=== PATIENT | female | born 1955 | race Caucasian/White ===

== ENCOUNTER 2016-07-06 11:50 | Inpatient (IN) | payer MEDICARE ==
[2016-07-06] VITALS (9 sets, daily range): BP systolic 87–161; BP diastolic 46–80
[~2016-07-06] VITALS: Ht 162.6 cm; Wt 125.7 kg
[~2016-07-06 11:50] MED LIST: ASPIRIN81 M1 PO; BENZAMYCIN 5%-31 GEL TP; DULERA1 AR1 INH; FLEXERIL10 MG PO; FLUTICASON0.05 MG/A1 NS; GLUCOPHAGE500 MG PO; HUMALOG100 UNITS/ SUBQ; HYDROCODONE/HO473 ML PO; LANTUS INS100 UNITS/ SUBQ; LASIX20 MG PO; LIPITOR80 MG PO; MIRAPEX0.5 MG PO; NAPROSYN500 MG PO; NOVOLIN R100 UNITS/ SUBQ; PREDNISONE10 MG PO; PRILOSEC40 MG PO; PROAIR HFA0.09 MG/Ac INH; PROVENTIL2.5 MG/3 M NEB; ROBITUSSIN/DEXT10 ML PO; SPIRIVA MD18 MCG/CAP INH; XANAX0.5 MG PO; ZESTRIL10 MG PO; ZITHROMAX250 MG PO
--- NOTE | 2016-07-06 11:55 | NUR ---
Patient BIBA ACLS accompanied by Pavel GUAMAN, transferred to bed 4. RN evaluating patient at bedside.
--- NOTE | 2016-07-06 12:00 | NUR ---
60F BIB[place] [facility] [place] SHORTNESS OF BREATH X 30 MINUTES AGO PRIOR TO ARRIVAL; HX: COPD, CHF, ASTHMA; PER [facility], PT BASELINE O2 SAT 86-89% ON 3L; PER [facility], PT O2 SAT DROPPED TO 79% ON 3L AT FACILITY; PT DENIES SOB OR CHEST PAIN AT THIS TIME; RR LABORED, COARSE RHONCHI TO RT UPPER LOBE HEARD ON EXPIRATION; PT DENIES COUGH AT THIS TIME; TACHYCARDIA NOTED ON MONITOR; BL +4 PITTING EDEMA TO LOWER EXTREMITIES W/ PURPLE DISCORATION TO BL TOES NOTED AT THIS TIME; [facility] STATES PT HAS BL CELLULITIS TO LOWER EXTREMITIES; PT C/O ACHING PAIN TO BL LOWER EXTREMITIES, NON-RADIATING, 10 X 3 WEEKS; PT A&OX4, PERRLA, DENIES N/V/D AT THIS TIME; PT STATES BED BOUND; PT PLACED ON MONITOR, RESTING IN BED W/ HOB ELEVATED AND IN LOWEST POSITION; POSITIONED FOR COMFORT; ER MD MADE AWARE OF STATUS. WILL CONTINUE TO MONITOR.
[2016-07-06] MEDS ORDERED: IPRATROPIUM 0.02% 0.5 MG/2.5 ML NEBU INH ONE (12:05)
[2016-07-06] MEDS ORDERED: ALBUTEROL 0.083% 2.5 MG/3 ML NEBU INH ONE (12:05)
--- NOTE | 2016-07-06 12:16 | NUR ---
RT AT BEDSIDE.
--- NOTE | 2016-07-06 12:16 | NUR ---
ER MD DR. FREGOSO EVALUATING PT AT BEDSIDE.
--- NOTE | 2016-07-06 13:18 | NUR ---
XRAY AT BEDSIDE.
[2016-07-06] MEDS ORDERED: NACL 0.9% 1,000 ML IV ONE (13:20)
[2016-07-06] MEDS ORDERED: cefTRIAXone 2,000 MG in DEXTROSE 5% 100 ML IV ONE (13:20)
[2016-07-06] MEDS ORDERED: cefTRIAXone 2,000 MG VIAL ONE (13:31)
--- NOTE | 2016-07-06 14:15 | NUR ---
Patient appears to be resting comfortably in bed. DENIES ANY ACUTE DISTRESS AT THIS TIME; DENIES SOB AT THIS TIME; WILL CONTINUE TO MONITOR.
[2016-07-06] MEDS ORDERED: VANCOMYCIN HCL 750 MG in DEXTROSE 5% 250 ML IV SCH (14:25)
[2016-07-06] MEDS ORDERED: VANCOMYCIN 1,000 MG VIAL ONE (14:59)
--- NOTE | 2016-07-06 15:17 | NUR ---
REPORT GIVEN TO FERMIN.
[2016-07-06] MEDS ORDERED: HYDROcodone/APAP 10/325 MG 1 TAB TAB PO PRN (15:25)
[2016-07-06] MEDS ORDERED: ONDANSETRON 4 MG TAB PO PRN (15:25)
[2016-07-06] MEDS ORDERED: INSULIN LISPRO SLIDING SCALE 100 UNITS/ML VIAL SUBQ PRN (15:25)
--- NOTE | 2016-07-06 15:31 | NUR ---
Patient will be admitted to care of . Admited to ICU. Will go to room ICU3. Belongings list completed. Report to YOVANA CHRISTENSEN.
--- NOTE | 2016-07-06 15:40 | NUR ---
PT ADMITTED FROM ER, AWAKE ALERT AND ORIENTED X4. NO SIGNS OF ACUTE DISTRESS. WITH O2 VIA VENTURI MASK AT 40% FIO2. KEPT HOB ELEVATED. SKIN IS WARM AND DRY. NOTED BILATERAL UPPER EXTREMITIES DISCOLORATION AND LEFT LEG DISCOLORATION KEPT ELEVATED ON PILLOWS. NO SIGNS OF ANY BOWEL/BLADDER DISCOMFORT. DENIES OF ANY PAIN OR DISCOMFORT. ALL NEEDS ATTENDED, SAFETY PRECAUTIONS MAINTAINED. CALL LIGHT WITHIN REACH.
[2016-07-06] MEDS ORDERED: FUROSEMIDE 40 MG/4 ML VIAL IVP SCH (16:00)
[2016-07-06] MEDS: BLOOD GLUCOSE MONITORING 1 DEV DEV FS SCH ×2 (16:45→20:47)
[2016-07-06] MEDS: metFORMIN 500 MG TAB PO SCH (16:48)
--- NOTE | 2016-07-06 16:48 | NUR ---
CALLED DR. VIZCARRA FOR MRSA, VTE - 18 SCORE ORDERS. NO RESPONSE AT THIS TIME. TO FOLLOW UP. Addendum: 07/06/16 at 1910 by Jerson Pope RN CALLED DR. VIZCARRA FOR MRSA, VTE - 13 SCORE ORDERS. NO RESPONSE AT THIS TIME. TO FOLLOW UP.
[2016-07-06] MEDS ORDERED: ACETAMINOPHEN 325 MG SUPP RC PRN (16:55)
[2016-07-06] MEDS: NACL 0.9% 1,000 ML IV SCH ×2 (17:18→20:42)
[2016-07-06] MEDS: PIPER/TAZO 3.375GM/D5W PREMIX 50 ML IV SCH ×2 (17:19→23:21)
--- NOTE | 2016-07-06 17:57 | NUR ---
DR VIZCARRA ON UNIT. GIVEN REPORT. MADE AWARE OF VTE SCORE 18. MRSA ORDERS OBTAINED. CONTINUE TO MONITOR. Addendum: 07/06/16 at 1910 by Jerson Pope RN DR VIZCARRA ON UNIT. GIVEN REPORT. MADE AWARE OF VTE SCORE 13. MRSA ORDERS OBTAINED. CONTINUE TO MONITOR.
[2016-07-06] MEDS ORDERED: ALBUTEROL SULFATE/IPRATROPIU 3 ML SOL IH SCH (18:00)
--- NOTE | 2016-07-06 18:10 | NUR ---
NOTED O2 SAT AT 81% RT. AND DR. VIZCARRA MADE AWARE. PT. AWAKE ALERT AND DENIES SYMPTOMS OF ACUTE DISTRESS. KEPT HOB ELEVATED. CONTINUE TO MONITOR.
--- NOTE | 2016-07-06 18:15 | NUR ---
PT PLACED ON NON REBREATHER MASK. NOTED O2 SAT AT 100%. PT PLACED ON A COMFORTABLE POSITION. PT DENIES SOB PAIN OR ANY SIGNS OF ACUTE DISTRESS CONTINUE TO MONITOR.
--- NOTE | 2016-07-06 18:30 | NUR ---
DR SHARMA ON FLOOR. REPORT GIVEN ON PT'S CURRENT STATUS. CONTINUE TO MONITOR.
--- NOTE | 2016-07-06 18:45 | NUR ---
PT ALERT AND RESPONSIVE, NO SIGNS OF ACUTE DISTRESS. TO ENDORSE TO ONCOMING BASKET WEAVER NURSE FOR CONTINUITY OF CARE.
[2016-07-06] MEDS ORDERED: ALBUTEROL 0.083% 2.5 MG/3 ML NEBU INH SCH (19:00)
[2016-07-06] MEDS ORDERED: WARFARIN 5 MG TAB PO ONE (19:45)
--- NOTE | 2016-07-06 19:45 | NUR ---
RECEIVED US VENOUS DOPPLER BLE RESULTS AT 193, PAGED DR. HERRMANN AT 0, CALLED BACK AT 1944, INFORMED RESULT: DEMONSTRATION OF DEEP VEIN THROMBOSIS WITH OCCLUSION OF THE DEEP VENOUS SYSTEM BILATERALLY. DR. HERRMANN ORDERED TO GIVE COUMADIN 5 MG PO NOW.
[2016-07-06] MEDS: ALBUTEROL SULFATE/IPRATROPIU 3 ML SOL IH SCH (19:51)
--- NOTE | 2016-07-06 19:51 | NUR ---
PT PLACED ON BIPAP AFTER ABG RESULTS GIVEN TO DR SHARMA. PT AWAKE, WITH FULL LARGE SIZE FACE MASK. PT BREATH SOUNDS DIMINISHED BILATERALLY, HHN TX GIVEN VIA INLINE. PT HAS NO COUGH AT THIS TIME. NO ADVERSE EFFECTS NOTED. BIPAP ALARMS ON AND AUDIBLE. BIPAP PLUGGED INTO RED ELECTRICAL OUTLET. AMBU BAG AT [facility].
--- NOTE | 2016-07-06 20:00 | NUR ---
PATIENT ASLEEP, EASILY AROUSED, ON BIPAP, NO RESPIRATORY DISTRESS, IVF NS AT 150 ML/HR, IV SITE ON LEFT HAND G#24 PATENT AND INTACT, ST ON THE MONITOR. PATIENT WITH BRUISING ON BUE, LEFT LEG RED, WARM TO TOUCH, 4+ PITTING EDEMA, LEFT FOOT WITH 4+ PITTING EDEMA TOO. RIGHT LEG/FOOT WITH 3+ PITTING EDEMA, DENIES PAIN. Addendum: 07/07/16 at 0141 by Sabine Ta RN ADDITIONAL SKIN ASSESSMENT: PATIENT WIT RASH ON ABDOMINAL FOLD AND ALSO ON HER PERIAREA.
[2016-07-06] MEDS: methylPREDNISolone SS 40 MG/ML VIAL IVP SCH (20:40)
[2016-07-06] MEDS: ATORVASTATIN 20 MG TAB PO SCH (20:42)
[2016-07-06] MEDS: DOCUSATE SODIUM 250 MG GELCAP PO SCH (20:42)
[2016-07-06] MEDS: PRAMIPEXOLE 0.5 MG TAB PO SCH (20:47)
[2016-07-06] MEDS ORDERED: INSULIN DETEMIR 100 UNITS/ML 10 ML VIAL SUBQ SCH (21:00)
[2016-07-06] MEDS ORDERED: ALPRAZolam 0.5 MG TAB PO PRN (21:00)
[2016-07-06] MEDS ORDERED: ALPRAZolam 0.5 MG TAB PO SCH (21:00)
--- NOTE | 2016-07-06 21:30 | NUR ---
DR. HERRMANN HERE IN THE UNIT AT THIS TIME TO SEE HER PATIENTS, INFORMED THAT PATIENT HAS ONLY ONE IV SITE ON LEFT HAND G#24, TRIED 3X ALREADY TO PLACED NEW LINE BUT UNSUCCESSFUL.
--- NOTE | 2016-07-06 21:40 | NUR ---
BIPAP CHECKED. PT RESTING QUIETLY, FIO2 DECREASED TO 40%, SATURATION REMAINS AT 98-100%. NO DISTRESS/SOB NOTED AT THIS TIME. NO ADVERSE EFFECTS NOTED.
--- NOTE | 2016-07-06 23:35 | NUR ---
BIPAP CHECKED. PT ASLEEP, NO DISTRESS/SOB NOTED AT THIS TIME. WILL CONTINUE TO MONITOR.
[2016-07-07] VITALS (17 sets, daily range): BP systolic 93–138; BP diastolic 51–94
--- NOTE | 2016-07-07 00:10 | NUR ---
SLEEP, EASILY AROUSED, PATIENT PREFERS TO BE ON HER LEFT SIDE, ON BIPAP, NO RESPIRATORY DISTRESS.
[2016-07-07] MEDS: HYDRAGUARD CREAM TP SCH ×2 (01:00→11:17)
[2016-07-07] MEDS: ALBUTEROL SULFATE/IPRATROPIU 3 ML SOL IH SCH ×4 (01:30→19:11)
--- NOTE | 2016-07-07 01:30 | NUR ---
BIPAP CHECKED. PT ASLEEP, BREATH SOUNDS DIMINISHED BILATERALLY. HHN TX GIVEN VIA INLINE. NO ADVERSE EFFECTS NOTED.
--- NOTE | 2016-07-07 01:41 | NUR ---
PATIENT JUST HAD A BOWEL MOVEMENT, LARGE BROWN FORMED STOOL. PROVIDED BED BATH AND COMPLETE LINEN CHANGED.LEFT LEG REDNESS NOTED SUBSIDING, BOTH LEGS ELEVATED WITH PILLOW, PATIENT ABLE TO TURN SELF WITH MINIMAL ASSIST, NO RESPIRATORY DISTRESS, DENIES PAIN.
--- NOTE | 2016-07-07 03:33 | NUR ---
BIPAP CHECKED. PT ASLEEP, NO DISTRESS/SOB NOTED AT THIS TIME. PT BELL WELL.
[2016-07-07] MEDS: NACL 0.9% 1,000 ML IV SCH ×3 (03:36→16:20)
--- NOTE | 2016-07-07 03:56 | NUR ---
SLEEPING COMFORTABLY, NO RESPIRATORY DISTRESS.
[2016-07-07] MEDS: methylPREDNISolone SS 40 MG/ML VIAL IVP SCH ×3 (05:09→20:58)
[2016-07-07] MEDS: PIPER/TAZO 3.375GM/D5W PREMIX 50 ML IV SCH ×3 (05:10→17:02)
--- NOTE | 2016-07-07 05:20 | NUR ---
BIPAP CHECKED. PT RESTING QUIETLY. NO DISTRESS/SOB NOTED AT THIS TIME.
--- NOTE | 2016-07-07 06:28 | NUR ---
AM CARE PROVIDED, NO RESPIRATORY DISTRESS, BLE ELEVATED WITH PILLOWS. ACCUCHECK DONE , BS 78. DENIES PAIN.
--- NOTE | 2016-07-07 07:00 | NUR ---
PT IS ASLEEP, EASILY AROUSABLE. NO SIGNS OF ACUTE DISTRESS. WITH BIPAP 50%. KEPT HOB ELEVATED AT LEAST 30 DEGREES. SKIN IS WARM AND DRY, OFFLOAD TO PRESSURE AREAS. BLE ELEVATED ON PILLOWS. NO C/O ANY BOWEL OR BLADDER DISCOMFORT. DENIES OF ANY PAIN OR DISCOMFORT. ALL NEEDS ATTENDED, SAFETY PRECAUTIONS MAINTAINED. CALL LIGHT WITHIN REACH.
[2016-07-07] MEDS: BLOOD GLUCOSE MONITORING 1 DEV DEV FS SCH ×4 (07:22→20:54)
[2016-07-07] MEDS ORDERED: CLINICAL MONITORING MC PRN (08:10)
--- NOTE | 2016-07-07 08:10 | NUR ---
RECEIVED PT STABLE ON BIPAP, TAKEN OFF BIPAP FOR HHN TX, TOLERATED WELL, DID NOT NEED TO GO BACK ON TO BIPAP AT THIS TIME, PLACED ON 4L NC, NO RESP DISTRESS OR SOB NOTED, FERMIN RN NOTIFIED, WILL CONTINUE TO MONITOR.
[2016-07-07] MEDS: DOCUSATE SODIUM 250 MG GELCAP PO SCH ×2 (08:17→20:58)
[2016-07-07] MEDS: metFORMIN 500 MG TAB PO SCH ×2 (08:17→16:55)
[2016-07-07] MEDS: PRAMIPEXOLE 0.5 MG TAB PO SCH ×2 (08:18→20:59)
[2016-07-07] MEDS: MORPHINE SULFATE 2 MG/ML SYR IVP PRN ×4 (08:37→18:06)
--- NOTE | 2016-07-07 08:53 | NUR ---
NEW ORDERS RECEIVED FROM BRYON LEVIN AND CONSULT WITH DR. PAT. NOTED AND CARRIED OUT.
[2016-07-07] MEDS ORDERED: FUROSEMIDE 40 MG/4 ML VIAL IVP SCH (09:00)
[2016-07-07] MEDS ORDERED: LACTOBACILLUS RHAMNOSUS GG 1 EACH CAP PO SCH (09:00)
[2016-07-07] MEDS ORDERED: LISINOPRIL 10 MG TAB PO SCH (09:00)
[2016-07-07] MEDS ORDERED: MAG SULF 2000 MG/WATER PREMIX 50 ML IV SCH (09:00)
[2016-07-07] MEDS ORDERED: ASPIRIN 81 MG TAB.CHEW PO SCH (09:00)
[2016-07-07] MEDS ORDERED: PANTOPRAZOLE 40 MG TABEC PO SCH (09:00)
--- NOTE | 2016-07-07 09:30 | NUR ---
WAS NOTIFIED BY ASSIGNED RT, PT PLACED ON NASAL CANULA AT 4L/MIN. TOLERATING WELL. O2 SAT AT 94% CONTINUE TO MONITOR.
--- NOTE | 2016-07-07 10:27 | NUR ---
URINE COLLECTED AND SENT TO LAB.
--- NOTE | 2016-07-07 10:50 | NUR ---
PER DR. VIZCARRA, OK TO TRANSFER PT TO [facility]. CALLED [facility] [phone] RE: TRANSFER OF PT TO [facility]. LABS, XR RESULTS, H&P, LIST OF MEDS. FAXED TO [phone]. ANKUR WILL CALL BACK.
--- NOTE | 2016-07-07 11:11 | NUR ---
NEW ORDERS RECEIVED FROM DR. VIZCARRA. INSERT FC AND CHANGE NS IVF RATE TO 50ML/HR. NOTED AND CARRIED OUT.
--- NOTE | 2016-07-07 11:25 | NUR ---
PT TOLERATED FARIAS CATHETER INSERTION, OBTAINED YELLOW CLEAR URINE AT 275ML. CONTINUE TO MONITOR.
--- NOTE | 2016-07-07 11:38 | NUR ---
WAS SEEN BY HAIDER CASTANEDA FOR CONSULT WITH DR. PAT. CONTINUE TO MONITOR.
[2016-07-07] MEDS: ALBUTEROL SULFATE/IPRATROPIU 3 ML SOL IH PRN ×2 (11:40→21:54)
--- NOTE | 2016-07-07 13:45 | NUR ---
PT PLACED BACK ON BIPAP 40% O2 SAT AT 97%. CONTINUE TO MONITOR.
--- NOTE | 2016-07-07 13:52 | NUR ---
PT DESATURATING TO 84% AND BEGINNING TO FEEL SHORT OF BREATH, ASKED TO BE PLACED BACK ONTO BIPAP. PLACE ON BIPAP 10/5, RR 12, FIO2 40%, HHN TX GIVEN, TOLERATING WELL, WILL CONTINUE TO MONITOR.
--- NOTE | 2016-07-07 14:47 | NUR ---
NEW AM LAB ORDERS RECEIVED FROM DR. VIZCARRA. NOTED AND CARRIED OUT.
--- NOTE | 2016-07-07 15:56 | NUR ---
CALLED [facility] T[facility]. # [phone] TO FOLLOW UP ON PT TRANSFER TO [place]. NO RESPONSE.
--- NOTE | 2016-07-07 16:45 | NUR ---
WAS SEEN BY DR. HAIDER HOLLINS. PLACED FERMIN WRAP ON BILATERAL LEGS. PT ABLE TO TOLERATED PROCEDURE. BOTH LEGS ELEVATED ON PILLOWS. CONTINUE TO MONITOR.
[2016-07-07] MEDS ORDERED: WARFARIN 5 MG TAB PO SCH (17:00)
--- NOTE | 2016-07-07 17:10 | NUR ---
REPORT GIVEN TO ANKUR FROM [facility]. DR. CARMITA CARLOS.
--- NOTE | 2016-07-07 17:15 | NUR ---
PT AWARE OF POSSIBLE TRANSFER TO [facility].
--- NOTE | 2016-07-07 17:29 | NUR ---
WAS MADE AWARE BY CHARGE NURSE, PT TO BE ARRANGED FOR TRANSFER TO [facility] TODAY. CM FROM [facility] CURRENTLY REVIEWING PT'S CASE, WILL CALL AND NOTIFY UNIT IF BED IS GOING TO BE AVAILABLE EITHER IN [facility] OR [place]. MIRANDA GONZALEZ, AWARE
--- NOTE | 2016-07-07 17:30 | NUR ---
PT'S MIRANDA NOTIFIED OF POSSIBLE TRANSFER OF PT TO [facility].
--- NOTE | 2016-07-07 17:59 | NUR ---
PT BEGAN TO FEEL SOME RESP DISTRESS, REQUESTED TO BE PLACED BACK ONTO BIPAP, PLACED BACK ONTO BIPAP, TOLERATING WELL, WILL ENDORSE TO PUMPER GAGER APPRENTICE
--- NOTE | 2016-07-07 18:00 | NUR ---
ANKUR ([facility]) NOTIFIED OF ABG RESULTS.
--- NOTE | 2016-07-07 19:03 | NUR ---
PT ALERT AND RESPONSIVE, NO SIGNS OF ACUTE DISTRESS. ENDORSED TO ONCOMING CLINICAL DIRECTOR NURSE FOR CONTINUITY OF CARE.
[2016-07-07] MEDS ORDERED: [UNRECOGNIZED DRUG - OTHER] IV (19:35)
[2016-07-07] MEDS ORDERED: BD LACTINEX1.4 MG PO (19:35)
--- NOTE | 2016-07-07 20:00 | NUR ---
PATIENT [id number], ST ON THE MONITOR, ON O2 AT 4LNC, HOB ELEVATED, IVF NS AT 50 ML/HR, IV SITE LEFT HAND G#24 PATENT AND INTACT, HAS FARIAS CATHETER DRAINING CLOUDY YELLOW URINE. BOTH LEGS WRAPPED ON FERMIN BANDAGE. PATIENT COMPLAINING OF PAIN (CHEST AND LEGS), INFORMED THAT PAIN MEDS NOT DUE AT THIS TIME, PATIENT ASKED MD TO BE CALLED TO ASK FOR ANOTHER PAIN MED. DR. HERRMANN INFORMED, WILL PUT ORDER FOR TORADOL, PATIENT INFORMED.
[2016-07-07] MEDS ORDERED: KETOROLAC 30 MG/ML VIAL IM PRN (20:05)
--- NOTE | 2016-07-07 20:52 | NUR ---
ANKUR/JULIÁN FROM [facility] CALLED TO INFORMED OF BED AVAILABILITY AND TO CALL FOR REPORT.
[2016-07-07] MEDS: ATORVASTATIN 20 MG TAB PO SCH (20:58)
[2016-07-07] MEDS ORDERED: INSULIN DETEMIR 100 UNITS/ML 10 ML VIAL SUBQ SCH (21:00)
--- NOTE | 2016-07-07 21:05 | NUR ---
CALL PLACED TO [facility] AT [phone], REPORT GIVEN.
--- NOTE | 2016-07-07 21:15 | NUR ---
PLACED A CALL TO PATIENT'S MIRANDA GONZALEZ THAT PATIENT WILL BE TRANSFERRED TO [facility], AMBULANCE ON THEIR WAY TO TILLER WORKER THE PATIENT HERE AT [facility].
--- NOTE | 2016-07-07 22:40 | NUR ---
PATIENT DISCHARGED FROM ICU AT 2239, NO BELONGINGS, TRANSPORTED BY [facility] GOING TO [facility] ROOM 427, NO RESPIRATORY DISTRESS, DENIES PAIN. MIRANDA GONZALEZ NOTIFIED OF THE TRANSFER.
[2016-07-18] MEDS ORDERED: AMERINET CHOICE40 MG IVP (12:31)
[2016-07-18] MEDS ORDERED: ASPIRIN ADULT L81 M1 PO (12:31)
[2016-07-18] MEDS ORDERED: DEXTROSE 50 ML50 M3 IVP (12:31)
[2016-07-18] MEDS ORDERED: HEPARIN SOD5000 U/M1 IV (12:31)
[2016-07-18] MEDS ORDERED: ACETAMINOPHEN325 M2 PO (12:31)
[2016-07-18] MEDS ORDERED: HUMALOG SL100 UNITS/ SUBQ (12:31)
[2016-07-18] MEDS ORDERED: APAP/HYDROCODON1 T30 PO (12:31)
[2016-07-18] MEDS ORDERED: FUROSEMIDE20 M1 PO (12:31)
[2016-07-18] MEDS ORDERED: COLACE100 M1 PO (12:31)
[2016-07-18] MEDS ORDERED: ALPRAZOLAM0.5 M1 PO (12:31)
[2016-07-18] MEDS ORDERED: PULMICORT0.5 MG/2 M INH (12:31)
[2016-07-18] MEDS ORDERED: KAYEXALATE15 GM/60 M PR (12:31)
[2016-07-18] MEDS ORDERED: ATORVASTATIN CA20 MG PO (12:31)
[2016-07-18] MEDS ORDERED: [UNRECOGNIZED DRUG - OTHER] IV (12:31)
[2016-07-18] MEDS ORDERED: IPRATROPIUM BROM3 M1 IH (12:31)
[2016-07-18] MEDS ORDERED: XANAX0.5 M1 PO (15:38)
== END 2016-07-07 22:39 | disposition short-term general hospital (02) | DRG 871 ==
LOC: MED 11:50 → MIC 15:17
PROVIDERS: ADMIT Student in an Organized Health Care Education/Training Program; ATTEND Student in an Organized Health Care Education/Training Program
PROC: 5A09357 Assistance with Respiratory Ventilation, Less than 24 Consecutive Hours, Continuous Positive Airway Pressure (ICD-10-PCS; principal; 2016-07-06)
DX: A41.9 Sepsis, unspecified organism (principal); J96.21 Acute and chronic respiratory failure with hypoxia; J96.22 Acute and chronic respiratory failure with hypercapnia; J69.0 Pneumonitis due to inhalation of food and vomit; N17.0 Acute kidney failure with tubular necrosis; J44.1 Chronic obstructive pulmonary disease with (acute) exacerbation; E87.1 Hypo-osmolality and hyponatremia; E44.0 Moderate protein-calorie malnutrition; I82.403 Acute embolism and thrombosis of unspecified deep veins of lower extremity, bilateral; Z68.42 Body mass index [BMI] 45.0-49.9, adult; I50.9 Heart failure, unspecified; I11.0 Hypertensive heart disease with heart failure; K21.9 Gastro-esophageal reflux disease without esophagitis; E78.5 Hyperlipidemia, unspecified; E66.01 Morbid (severe) obesity due to excess calories; F17.200 Nicotine dependence, unspecified, uncomplicated; G47.33 Obstructive sleep apnea (adult) (pediatric); E11.65 Type 2 diabetes mellitus with hyperglycemia; D64.9 Anemia, unspecified; E87.5 Hyperkalemia; L81.9 Disorder of pigmentation, unspecified; E83.42 Hypomagnesemia; E11.51 Type 2 diabetes mellitus with diabetic peripheral angiopathy without gangrene; Z82.49 Family history of ischemic heart disease and other diseases of the circulatory system; Z79.82 Long term (current) use of aspirin; Z79.899 Other long term (current) drug therapy; Z86.711 Personal history of pulmonary embolism; Z56.0 Unemployment, unspecified; Z83.3 Family history of diabetes mellitus; Z79.4 Long term (current) use of insulin

== ENCOUNTER 2016-07-17 14:56 | Inpatient (IN) | payer MEDICARE ==
[~2016-07-17] VITALS: Ht 172.7 cm; Wt 121.1 kg
[2016-07-17] VITALS (27 sets, daily range): BP systolic 78–142; BP diastolic 35–97
--- NOTE | 2016-07-17 14:00 | NUR ---
PT WAS INTUBATED IN ER WITH 7.5 ETT AT 23 AT THE LIP WITH HELP OF RT COTTON. SETTINGS ARE AC 550,14,5,100%. WILL FOLLOW WITH ORDERS.
--- NOTE | 2016-07-17 14:50 | NUR ---
PT CAME IN THRU ER FOR SOB AND RESP DISTRESS AND WAS ON CPAP. PT WAS PUT ON BIPAP SETTINGS 12/05,12,100% SATTING 100%. Addendum: 07/17/16 at 1539 by Paco Whitfield RT RT [facility]ER HELPING AT BEDSIDE.
[~2016-07-17 14:56] MED LIST changes: +ALBU-136 INH; +ALPR0.5T2 PO; +ASPI81CT89 PO; -ASPIRIN81 M1 PO; -BENZAMYCIN 5%-31 GEL TP; -DULERA1 AR1 INH; -FLEXERIL10 MG PO; -FLUTICASON0.05 MG/A1 NS; +FORM1 INH; +FURO-572 PO; -GLUCOPHAGE500 MG PO; -HUMALOG100 UNITS/ SUBQ; -HYDROCODONE/HO473 ML PO; +LACT1.4C PO; -LANTUS INS100 UNITS/ SUBQ; +LANTUS SUBQ; -LASIX20 MG PO; +LIP80 PO; -LIPITOR80 MG PO; +LISI10TA11 PO; +METF500T PO; -MIRAPEX0.5 MG PO; -NAPROSYN500 MG PO; -NOVOLIN R100 UNITS/ SUBQ; +OMEP40EC1 PO; +PIPE1PDS26 IV; +PRAM0.5T4 PO; +PRED10TA5 PO; -PREDNISONE10 MG PO; -PRILOSEC40 MG PO; -PROAIR HFA0.09 MG/Ac INH; +PRON NEB; -PROVENTIL2.5 MG/3 M NEB; -ROBITUSSIN/DEXT10 ML PO; +SPIMDI INH; -SPIRIVA MD18 MCG/CAP INH; -XANAX0.5 MG PO; -ZESTRIL10 MG PO; -ZITHROMAX250 MG PO; +[UNRECOGNIZED DRUG - CODE] NS
--- NOTE | 2016-07-17 14:56 | NUR ---
PT BIBA TO BED 3 AT THIS TIME.
--- NOTE | 2016-07-17 15:00 | NUR ---
60F BIBA FROM [facility] C/O SHORTNESS OF BREATH S/P PHYSICAL THERAPY X 1400 TODAY; PT BIBA ON CPAP; A&OX4, PERRLA ON ARRIVAL; PT NOTED WITH BL RHONCHI, WHEEZES, AND DIMINISHED BREATH SOUNDS THROUGHOUT W/ LABORED BREATHING & TACHYPNEA ON THE MONITOR; PT DENIES ANY PAIN, N/V/D AT THIS TIME; PT NOTED W/ BL UPPER/LOWER EXTREMITY EDEMA; PURPRLE DISCOLRATION TO BL UPPER EXTREMITIES; REDNESS/OPEN SKIN TO BUTTOCKS; OPEN SKIN TO LEFT HAND. PT PLACED ON MONITOR, RESTING IN BED W/ HOB ELEVATED AND IN LOWEST POSITION; POSITIONED FOR COMFORT; ER MD MADE AWARE OF STATUS. WILL CONTINUE TO MONITOR.
--- NOTE | 2016-07-17 15:00 | NUR ---
ET TUBE 7.5 AT 23 CM.
--- NOTE | 2016-07-17 15:14 | NUR ---
Sushila lorenzo in [facility] - 07/17/16 at 1553 by MARTIN PT BIBA TO BED 3
[2016-07-17] MEDS ORDERED: MIDAZOLAM 2 MG/2 ML VIAL ONE (15:22)
[2016-07-17] MEDS ORDERED: fentaNYL 0.05 MG/ML VIAL ONE (15:23)
[2016-07-17] MEDS ORDERED: LEVOFLOXACIN 750 MG/D5W PREMIX 150 ML IV ONE (16:05)
[2016-07-17] MEDS ORDERED: NACL 0.9% 2,000 ML IV ONE (16:05)
[2016-07-17] MEDS ORDERED: NOREPINEPHRINE 4 MG in DEXTROSE 5% 250 ML IV ONE (16:05)
[2016-07-17] MEDS ORDERED: MIDAZOLAM 2 MG/2 ML VIAL IVP ONE (16:15)
[2016-07-17] MEDS ORDERED: fentaNYL 0.05 MG/ML VIAL IVP ONE (16:15)
--- NOTE | 2016-07-17 16:20 | NUR ---
AT 1500 HOURS DECISION WAS MADE TO INTUBATE PATIENT, RAPID SEQUENCE TRAY AT BEDISDE 200 MG OF ETOMIDATE GIVEN IVP AND THEN 50 ROCUCURIUM IVP. PATIENT INTUBATED BY MD SILVEIRA.
[2016-07-17 16:23] LABS: HEMATOCRIT 28.6 % (36-48); HEMOGLOBIN 8.8 g/dL (12.0-16.0); MEAN CORPUSCULAR HEMOGLOBIN 26 pg (27-31); MEAN CORPUSCULAR HGB CONC 31 g/dL (33-37); MEAN CORPUSCULAR VOLUME 84 fL (80-94); PLATELET COUNT (AUTO) 148 K/uL (140-450); RED BLOOD CELL COUNT(AUTO) 3.42 MIL/uL (4.20-5.40); RED CELL DISTRIBUTION WIDTH 16.9 % (11.6-13.7); WHITE BLOOD COUNT (AUTO) 24.7 K/uL (4.8-10.8)
[2016-07-17 16:39] LABS: INR 1.8 (0.8-1.2); PARTIAL THROMBOPLASTIN TIME 28.5 secs (22-35.6); PROTHROMBIN TIME 16.9 secs (10.8-13.4)
--- NOTE | 2016-07-17 16:40 | NUR ---
ETT AT 25 AT LIP
[2016-07-17 16:46] LABS: ALBUMIN 2.2 g/dL (3.4-5.0); CALCIUM 9.8 mg/dL (8.5-10.1); CREATININE 0.7 mg/dL (0.6-1.3); TOTAL BILIRUBIN 0.5 mg/dL (0.0-1.0); TOTAL PROTEIN, SERUM 5.8 g/dL (6.4-8.2)
[2016-07-17] MEDS ORDERED: NOREPINEPHRINE 4 MG/4 ML VIAL IV ONE (16:46)
--- NOTE | 2016-07-17 17:01 | NUR ---
ABG WAS DRAWN BUT WAS VENOUS. RT COTTON TRIED AGAIN WITH NO SUCCESS. DR NORWOOD AWARE. SPUTUM SAMPLE COLLECTED AND WAS SENT TO THE LAB.
[2016-07-17] MEDS ORDERED: fentaNYL 1 MG in NACL 0.9% 80 ML IV PRN (17:10)
[2016-07-17] MEDS ORDERED: VECURONIUM 10 MG VIAL IVP ONE (17:10)
[2016-07-17] MEDS ORDERED: MIDAZOLAM MDV 50 MG in NACL 0.9% 40 ML IV PRN (17:10)
[2016-07-17 17:16] LABS: BAND % (MANUAL) 6 % (0-8); EOSINOPHILS % (MANUAL) 2 % (0-4); HYPOCHROMASIA 1+; LYMPHOCYTES % (MANUAL) 3 % (20-46); MONOCYTES % (MANUAL) 3 % (5-12); NEUTROPHILS % (MANUAL) 84 (43-65); PLATELET ESTIMATE ADEQUATE; PROMYELOCYTES % 2 % (0-0)
--- NOTE | 2016-07-17 17:20 | NUR ---
REPORT GIVEN YOVANA BARNEY; AWAITING ADMIT ORDERS TO TRANSFER PT. WILL CONTINUE TO MONITOR.
--- NOTE | 2016-07-17 17:24 | NUR ---
PT BP 54/28; ER MD DR. RENEE NOTIFIED; WILL CONTINUE TO MONITOR.
--- NOTE | 2016-07-17 17:55 | NUR ---
PT BP 94/60; ER MD DR. RENEE NOTIFIED; WILL CONTINUE TO MONITOR.
[2016-07-17] MEDS ORDERED: NOREPINEPHRINE 8 MG in DEXTROSE 5% 250 ML IV PRN (18:20)
[2016-07-17] MEDS ORDERED: ACETAMINOPHEN 325 MG TAB PO PRN (18:20)
[2016-07-17] MEDS ORDERED: ONDANSETRON 4 MG/2 ML VIAL IVP PRN (18:20)
[2016-07-17] MEDS ORDERED: HYDROcodone/APAP 7.5/325 MG 1 TAB PO PRN (18:20)
--- NOTE | 2016-07-17 18:20 | NUR ---
Patient will be admitted to care of DR. BAUTISTA. Admited to ICU. Will go to room ICU 1. Belongings list completed. Report to YOVANA BARNEY.
[2016-07-17] MEDS ORDERED: ALBUTEROL SULFATE/IPRATROPIU 3 ML SOL IH PRN (18:30)
--- NOTE | 2016-07-17 18:35 | NUR ---
ADMITTED FROM ER THIS 60 YEAR OLD WHITE FEMALE PER [facility]. BY ER NURSES AND RT. UNABLE TO OBTAIN INFO FROM PT DUE TO ETT. ETT TO VENT TV 550,FI02 100%, AC 14/MIN, PEEP 5. PT. IS AWAKE, CALM, COOPERATIVE, DENIES ANY PAIN. IN ST. ON LEVOPHED DRIP INFUSING VIA LEFT FEMORAL TLC. FARIAS IN PLACE WITH SMALL AMT. YELLOWISH URINE. FEET EDEMATOUS. MOTTLED LEFT GREATER THAN RT.
--- NOTE | 2016-07-17 18:35 | NUR ---
TRANSFER PT FROM ER TO ICU 1, PLACED PT ON VENT, VENT CK DONE, NO DISTRESS NOTED .
--- NOTE | 2016-07-17 18:50 | NUR ---
ABLE TO ASSIST IN REPOSITIONING SELF IN BED.
[2016-07-17] MEDS: NACL 0.9% 1,000 ML IV SCH (19:18)
--- NOTE | 2016-07-17 19:36 | NUR ---
REPORT GIVEN TO YOVANA RYDER.
--- NOTE | 2016-07-17 19:45 | NUR ---
RECEIVED REPORT FROM CHARGE NURSE LINDSEY YEN. PATIENT RESTING IN BED. PATIENT OPENS EYES SPONTANEOUSLY, NONVERBAL, BUT CAN FOLLOW COMMANDS. PATIENT IS ABLE TO SHAKE OR NOD HER HEAD WHEN ASKED QUESTIONS. PATIENT IS ETT TO VENT WITH SETTINGS OF FIO2 100%, TIDAL VOLUME 550, A/C 14, PEEP 5. NO S/S OF RESPIRATORY DISTRESS OR SOB NOTED. BREATH SOUNDS ARE COARSE UPON AUSCULTATION AND BOWEL SOUNDS ARE HYPOACTIVE. THERE IS FARIAS CATHETER DRAINING TO GRAVITY WITH MODERATE AMOUNT OF LIGHT JAMILAH COLOR URINE NOTED. THERE IS A TRIPLE LUMEN CATHETER IN THE LEFT FEMORAL. PATIENT IS RECEIVING NORMAL SALINE 50 ML/HR AND LEVOPHED DRIP 10 MCG/KG/MIN. VITALS ARE WNL. HOB AT 30 DEGREES WITH BED IN LOW POSITION. WILL CONTINUE TO MONITOR PATIENT.
--- NOTE | 2016-07-17 19:59 | NUR ---
DECREASED FIO2 TO 50%
[2016-07-17] MEDS ORDERED: PIPERACILLIN/TAZOBACTAM 3.375 GM VIAL IV ONE (20:14)
[2016-07-17 20:58] LABS: CHOL/HDL RATIO 2.9 (1-4.5); FREE T4 (FREE THYROXINE) 1.15 ng/dL (0.76-1.46); MAGNESIUM 1.5 mg/dL (1.8-2.4); PHOSPHORUS 3.6 mg/dL (2.5-4.9); THYROID STIMULATING HORMONE 1.52 uIU/mL (0.34-3.76)
[2016-07-17] MEDS: PRAMIPEXOLE 0.5 MG TAB PO SCH (21:00)
[2016-07-17] MEDS ORDERED: ALPRAZolam 0.5 MG TAB PO PRN (21:00)
[2016-07-17] MEDS ORDERED: ATORVASTATIN 80 MG TAB PO SCH (21:00)
[2016-07-17] MEDS: DOCUSATE SODIUM 100 MG GELCAP PO SCH (21:00)
--- NOTE | 2016-07-17 21:01 | NUR ---
PATIENT REPOSITIONED FOR COMFORT. NO SIGNS OF SOB NOTED. CONTINUE TO MONITOR.
[2016-07-17] MEDS: PIPER/TAZO 3.375GM/D5W PREMIX 50 ML IV SCH (21:02)
--- NOTE | 2016-07-17 21:08 | NUR ---
ORAL CARE RENDERED. NO SIGNS OF DISTRESS NOTED. HOB AT 30 DEGREES WITH BED IN LOW POSITION. WILL CONTINUE TO MONITOR PATIENT.
[2016-07-17 21:37] LABS: BILIRUBIN,URINE NEGATIVE (NEGATIVE); BLOOD, URINE 3+ (NEGATIVE); COLOR,URINE YELLOW (YELLOW); LEUKOCYTE ESTERASE ,URINE NEGATIVE (NEGATIVE); NITRITE, URINE NEGATIVE (NEGATIVE); PH,URINE 5.5 (5.0-9.0); PROTEIN,URINE TRACE (NEGATIVE); UGLUCOSE 3+ (NEGATIVE); UROBILINOGEN,URINE 0.2 EU/dL (0.2 - 1)
[2016-07-17 21:42] LABS: APPEARANCE,URINE CLEAR (CLEAR)
[2016-07-17 21:43] LABS: AMPHETAMINE, URINE NEG. ng/ml (NEG <=1000); BARBITURATE, URINE NEG. ng/ml (NEG <=200); BENZODIAZEPINE, URINE POS. ng/mL (NEG <=200); CANNABINOID, URINE NEG. ng/mL (NEG <=50); COCAINE, URINE NEG. ng/mL (NEG <=300); OPIATE, URINE POS. ng/mL (NEG <=2000); PHENCYCLIDINE SCREEN,URINE NEG. ng/mL (NEG <=25)
--- NOTE | 2016-07-17 21:54 | NUR ---
PAGE DR. THOMAS REGARDING PATIENT'S ORAL MEDICATION IF IT CAN BE CHANGED INTO IV SINCE PATIENT HAS NO OGT OR NGT IN PLACE AND PER PATIENTS' POLST "NO ARTIFICIAL MEANS OF NUTRITION INCLUDING FEEDING TUBES"; PER MD KEEP PATIENT NPO FOR NOW INCLUDING MEDICATIONS SINCE NO EMERGENCY OR URGENT NEED OF ORAL MEDICATION TONIGHT AND LET IT BE SORT OUT IN THE MORNING ACCORDING TO HIM.
--- NOTE | 2016-07-17 22:34 | NUR ---
DR. ARNETT (COAL CHUTE WORKER) CALLED ON THE PHONE; UPDATED ON PATIENT'S MEDICAL CONDITION, WITH NEW ORDER NOT TO PUT OR APPLY SCD TO THE PATIENT SINCE PATIENT HAS BILATERAL DVT ON BOTH LOWER EXTREMITIES AND HE ALSO SUGGESTED TO ASK THE PMD TO START PATIENT ON HEPARIN DRIP SINCE PATIENT IS ON COUMADIN DOSE PREVIOUSLY.
--- NOTE | 2016-07-17 22:41 | NUR ---
PAGED DR. JONAS. WILL WAIT FOR CALL BACK.
--- NOTE | 2016-07-17 22:43 | NUR ---
DR. JONAS RETURNED PHONE CALL. CHARGE NURSE LAURIE YEN SPOKE TO PHYSICIAN REGARDING PATIENT'S HX OF DVT. DR. JONAS WILL PUT IN NEW ORDERS FOR HEPARIN DRIP. WILL FOLLOW UP WITH NEW DOCTOR'S ORDERS.
[2016-07-17 22:50] LABS: BACTERIA,URINE OCCASSIONAL /HPF (None Seen); HYALINE CASTS, URINE 0-10 /LPF (None Seen); RBC,URINE TOO NUMEROUS TO COUN /HPF (0-5); SQUAMOUS EPITHELIAL CELL,UR 4-10 (MOD) /LPF (0-3 (FEW)); WBC,URINE 0-5 (RARE) /HPF (0-5)
--- NOTE | 2016-07-17 22:50 | NUR ---
RESPIRATORY THERAPISTS SOO AT BEDSIDE FOR ABG.
[2016-07-17] MEDS ORDERED: HEPARIN PER PHARMACY MC PRN (23:15)
[2016-07-17] MEDS ORDERED: hePARIN / DEXT 5% PREMIX 250 ML IV SCH (23:15)
[2016-07-18] VITALS (49 sets, daily range): BP systolic 86–163; BP diastolic 55–99
--- NOTE | 2016-07-18 00:05 | NUR ---
ABG DONE, RESULTS GAVE TO RN. FOR DR ARNETT. NO CHANGES IN VENT SETTINGS, PT ALERT AND AWAKE, SX SMALL CLOUDY SECRETION.
[2016-07-18] MEDS: hePARIN / DEXT 5% PREMIX 250 ML IV SCH ×2 (00:07→20:15)
[2016-07-18 00:10] LABS: BLOOD GAS BASE EXCESS 6.5 mmol/L (-2.0-2.0); BLOOD GAS HCO3 32.7 mmol/L; BLOOD GAS O2 SAT% 96.2 % (92.0-98.5); BLOOD GAS PCO2 55.1 mmHg (20-50); BLOOD GAS PH 7.391 (7.35-7.45); BLOOD GAS PO2 80.6 mmHg
--- NOTE | 2016-07-18 01:02 | NUR ---
PATIENT REPOSITIONED FOR COMFORT TO LEFT LATERAL. PATIENT IS ABLE TO ASSIST IN AMBULATION. OFFERED VAP ORAL CARE TO PATIENT. PATIENT SHOOK HER HEAD NO. NO SIGNS OF RESPIRATORY DISTRESS NOTED. HOB AT 30 DEGREES WITH BED IN LOW POSITION.
--- NOTE | 2016-07-18 01:08 | NUR ---
SPOKE TO PHARMACIST JADE C/O [facility]. EXPLAINED TO JADE THAT ZOSYN WAS ADMINISTERED AT 2102 ON 07/17/16 THAT WAS ORIGINALLY ORDERED TO BE GIVEN AT 1850 ON 07/17/16. AJDE STATED IT IS OK TO NOT ADMINISTER 0000 DOSE AND TO ADMINISTER 0600 DOSE SCHEDULED.
[2016-07-18] MEDS: NACL 0.9% 1,000 ML IV SCH (02:37)
--- NOTE | 2016-07-18 03:00 | NUR ---
PATIENT RESTING COMFORTABLY IN BED WITH NO SIGNS OF RESPIRATORY DISTRESS NOTED. CONTINUE TO MONITOR PATIENT.
--- NOTE | 2016-07-18 04:30 | NUR ---
MORNING CARE RENDERED. BED BATH PROVIDED. CHANGED LINENS AND GOWN. REPOSITIONED TO OFFLOAD PRESSURE AREAS. NO SIGNS OF RESPIRATORY DISTRESS NOTED. HOB AT 30 DEGREES WITH BED IN LOW POSITION. CONTINUE TO MONITOR PATIENT. Addendum: 07/18/16 at 0532 by Teresa Gibbs RN CATHETER CARE PROVIDED.
[2016-07-18] MEDS ORDERED: PIPERACILLIN/TAZOBACTAM 3.375 GM VIAL IV ONE (04:33)
--- NOTE | 2016-07-18 04:50 | NUR ---
FRUIT HARVESTER AT BEDSIDE FOR SCHEDULED LAB DRAWS. TRIPLE LUMEN CATHETER PATENT AND HAS GOOD BLOOD RETURN. CONTINUE TO MONITOR PATIENT.
[2016-07-18 05:36] LABS: ANION GAP 6.5 (8-16); CALCIUM 10.6 mg/dL (8.5-10.1); CARBON DIOXIDE 36.7 mmol/L (21-32); CREATININE 0.7 mg/dL (0.6-1.3); POTASSIUM 5.2 mmol/L (3.5-5.1)
[2016-07-18 05:37] LABS: MAGNESIUM 1.5 mg/dL (1.8-2.4); PHOSPHORUS 2.3 mg/dL (2.5-4.9)
[2016-07-18 05:38] LABS: INR 1.4 (0.8-1.2); PROTHROMBIN TIME 13.3 secs (10.8-13.4)
[2016-07-18] MEDS: PIPER/TAZO 3.375GM/D5W PREMIX 50 ML IV SCH ×4 (05:49→17:40)
--- NOTE | 2016-07-18 05:52 | NUR ---
PT STARTED COUGHING AND SUCTION LARGE BROWN THICK SECRETION WITH MUCUS PLUGS
--- NOTE | 2016-07-18 05:58 | NUR ---
VAP ORAL CARE RENDERED. PATIENT TOLERATED WELL. NO SIGNS OF SOB OR DISTRESS NOTED. CONTINUE TO MONITOR.
[2016-07-18 06:36] LABS: HEMATOCRIT 31.7 % (36-48); HEMOGLOBIN 9.7 g/dL (12.0-16.0); MEAN CORPUSCULAR HEMOGLOBIN 26 pg (27-31); MEAN CORPUSCULAR HGB CONC 31 g/dL (33-37); MEAN CORPUSCULAR VOLUME 84 fL (80-94); PLATELET COUNT (AUTO) 180 K/uL (140-450); RED BLOOD CELL COUNT(AUTO) 3.77 MIL/uL (4.20-5.40); RED CELL DISTRIBUTION WIDTH 17.2 % (11.6-13.7)
[2016-07-18 06:37] LABS: BAND % (MANUAL) 10 % (0-8)
[2016-07-18 06:38] LABS: EOSINOPHILS % (MANUAL) 4 % (0-4); LYMPHOCYTES % (MANUAL) 5 % (20-46); MONOCYTES % (MANUAL) 6 % (5-12); NEUTROPHILS % (MANUAL) 75 (43-65)
--- NOTE | 2016-07-18 07:16 | NUR ---
PATIENT IN STABLE CONDITION. ALL PATIENT'S NEEDS ATTENDED TO DURING SHIFT. ENDORSED CONTINUITY OF CARE TO LAZARO YEN.
--- NOTE | 2016-07-18 07:20 | NUR ---
RECEIVED REPORT FROM YOVANA RYDER. PT IS LETHARGIC, BUT FOLLOWS COMMANDS. PT IS ETT TO VENT. FIO2: 40%, AC: 14, T: 550, PEEP: 5. CENTRAL LINE TO LEFT FEMORAL TLC IN PLACE. ALL PORTS PATENT AND INTACT. PT IS ON HEPARIN DRIP AT THIS TIME. REDNESS NOTED TO BUTTOCKS AND PERINEUM. WOUND NOTED TO LEFT HAND. FARIAS CATHETER IN PLACE DRAINING TO GRAVITY DRAINAGE BAG. PT IS CURRENTLY SINUS TACHYCARDIA ON THE MONITOR. SAFETY PRECAUTIONS IN PLACE WITH BED IN LOWEST POSITION AND SIDE RAILS UP. CALL LIGHT WITHIN REACH. WILL CONTINUE TO MONITOR.
[2016-07-18] MEDS ORDERED: BUDESONIDE 0.5 MG/2 ML NEBU INH SCH (07:30)
[2016-07-18] MEDS ORDERED: POTASSIUM PHOSPHATE 15 MM in NACL 0.9% 250 ML IV ONE (07:55)
--- NOTE | 2016-07-18 07:58 | NUR ---
RECEIVED ON A [employer] TechnologiesSCAPE R860 VENTILATOR PLUGGED INTO RED OUTLET TOLERATING WELL WITHOUT ADVERSE REACTIONS NOTED TO AN ENDOTRACHEAL TUBE #7.5 SECURE AT 25cm WITH AN ANCHOR FAST CUFF PRESSURE CHECKED FOR MOV AMBU BAG NOTED AT HOB LOC AWAKE AND ALERT BREATH SOUNDS DIFFUSED RALED BILATERAL WITH GOOD CHEST RISE ENDOTRACHEAL SUCTION FOR SCANT CLEAR WITH FEW BLOOD CLOTS AIRWAY PATENT
[2016-07-18] MEDS: ALBUTEROL SULFATE/IPRATROPIU 3 ML SOL IH SCH ×2 (07:59→12:39)
[2016-07-18] MEDS: metFORMIN 500 MG TAB PO SCH ×2 (08:00→17:00)
[2016-07-18] MEDS ORDERED: SODIUM POLYSTYRENE 15 GM/60 ML UDBTL PR SCH (08:00)
[2016-07-18] MEDS ORDERED: MAG SULF 2000 MG/WATER PREMIX 50 ML IV SCH ×2 (08:00→08:30)
--- NOTE | 2016-07-18 08:02 | NUR ---
DR. BAUTISTA'S GROUP IN TO SEE PT. WILL FOLLOW UP ON ORDERS.
[2016-07-18] MEDS ORDERED: DEXTROSE 50% 50 ML SYR IVP PRN (08:10)
[2016-07-18] MEDS: DOCUSATE SODIUM 100 MG GELCAP PO SCH (08:44)
[2016-07-18] MEDS: PRAMIPEXOLE 0.5 MG TAB PO SCH (08:45)
[2016-07-18] MEDS: SODIUM POLYSTYRENE 15 GM/60 ML UDBTL PR SCH ×2 (08:46→10:55)
--- NOTE | 2016-07-18 08:55 | NUR ---
UNABLE TO ADMINISTER PO MEDS PER PT'S POLST STATING NO ARTIFICIAL NUTRITION INCLUDING TUBES. DR. FOWLER AWARE. PT TOLERATED ALL OTHER MEDS WELL.
[2016-07-18] MEDS ORDERED: LISINOPRIL 10 MG TAB PO SCH (09:00)
[2016-07-18] MEDS ORDERED: PANTOPRAZOLE 40 MG INJ VIAL IVP SCH (09:00)
[2016-07-18] MEDS ORDERED: ASPIRIN 81 MG TAB.CHEW PO SCH (09:00)
[2016-07-18] MEDS ORDERED: predniSONE 20 MG TAB PO SCH (09:00)
[2016-07-18] MEDS ORDERED: FUROSEMIDE 20 MG TAB PO SCH (09:00)
--- NOTE | 2016-07-18 09:06 | NUR ---
PATIENT HAS BEEN SCREENED AND CATEGORIZED HIGH NUTRITION RISK. PATIENT WILL BE SEEN WITHIN 1-2 DAYS OF ADMISSION. 07/18/16-07/19/[address]
--- NOTE | 2016-07-18 09:33 | NUR ---
ASLEEP RESTING COMFORTABLY NO EVIDENCE OF SOB NOTED BREATH SOUNDS DECREASED BILATERAL WITH GOOD CHEST RISE AIRWAY PATENT Addendum: 07/18/16 at 0943 by Wally Rodriguez RT SATURATION 99% ON FIO2 OF 40% TITRATED FIO2 TO 35% LAZARO/YOVANA NOTIFIED
--- NOTE | 2016-07-18 09:52 | NUR ---
DR. VALLES IN TO SEE PT. WILL FOLLOW UP ON ORDERS.
--- NOTE | 2016-07-18 11:05 | NUR ---
PT'S PRESENT AT BEDSIDE. CALL LIGHT WITHIN REACH. WILL CONTINUE TO MONITOR.
--- NOTE | 2016-07-18 11:49 | NUR ---
NO PULMONARY DISTRESS NOTED AT THIS TIME BREATH SOUNDS DECREASED BILATERAL GOOD CHEST RISE AIRWAY PATENT
--- NOTE | 2016-07-18 12:12 | NUR ---
Clinical review,H&P, recent labs, WILL BE FAXED TO [facility] at [phone]
--- NOTE | 2016-07-18 12:18 | NUR ---
SPOKE TO ADAM, CASE MANAGEMENT FOR [employer]. UPDATED HER ON PT'S STATUS. WILL CALL BACK REGARDING POSSIBLE TRANSFER.
[2016-07-18] MEDS: BLOOD GLUCOSE MONITORING 1 DEV DEV FS SCH ×2 (12:20→16:30)
[2016-07-18] MEDS: INSULIN LISPRO SLIDING SCALE 100 UNITS/ML VIAL SUBQ PRN ×2 (12:21→17:41)
--- NOTE | 2016-07-18 12:24 | NUR ---
PT TOLERATED MEDS WELL.
[2016-07-18] MEDS ORDERED: DOCU-67 PO (12:31)
[2016-07-18] MEDS ORDERED: ATOR20TA40 PO (12:31)
[2016-07-18] MEDS ORDERED: ACET-9529 PO (12:31)
[2016-07-18] MEDS ORDERED: HUMSLIDE SUBQ (12:31)
[2016-07-18] MEDS ORDERED: ACET-1182 PO (12:31)
[2016-07-18] MEDS ORDERED: ASPI81CT27 PO (12:31)
[2016-07-18] MEDS ORDERED: HEPA500055 IV (12:31)
[2016-07-18] MEDS ORDERED: KAY15 PR (12:31)
[2016-07-18] MEDS ORDERED: FURO20TA8 PO (12:31)
[2016-07-18] MEDS ORDERED: ALPR0.5T20 PO (12:31)
[2016-07-18] MEDS ORDERED: IPRA3AMP IH (12:31)
[2016-07-18] MEDS ORDERED: HEPA-133 IV (12:31)
[2016-07-18] MEDS ORDERED: PUL.5N INH (12:31)
[2016-07-18] MEDS ORDERED: PANT40PD7 IVP (12:31)
[2016-07-18] MEDS ORDERED: D50SYR IVP (12:31)
--- NOTE | 2016-07-18 12:39 | NUR ---
DR. ARNETT IN TO SEE PT. WILL FOLLOW UP ON ORDERS.
--- NOTE | 2016-07-18 12:39 | NUR ---
AWAKE AND ALERT RESPONSIVE TOLERATING VENTILATOR SUPPORT WITHOUT INCIDENT BREATH SOUNDS CLEAR BILATERAL WITH GOOD AERATION THROUGHOUT
[2016-07-18] MEDS ORDERED: SODIUM PHOSPHATE 15 MMOLE in NACL 0.9% 250 ML IV SCH (13:00)
[2016-07-18 13:17] LABS: INR 1.6 (0.8-1.2); PARTIAL THROMBOPLASTIN TIME 47.3 secs (22-35.6); PROTHROMBIN TIME 15.2 secs (10.8-13.4)
--- NOTE | 2016-07-18 13:22 | NUR ---
RECEIVED TRANSFER CHECKOFF LIST FROM [place].
[2016-07-18] MEDS: PROPOFOL 1000 MG/100 ML PREMIX 100 ML IV PRN ×2 (13:28→18:03)
--- NOTE | 2016-07-18 13:46 | NUR ---
07/18/16 RD INITIAL ASSESSMENT COMPLETED PLEASE REFER TO NUTRITION ASSESSMENT UNDER CARE ACTIVITY FOR ESTIMATED NUTRITIONAL NEEDS. RD RECOMMENDATIONS: 1. PER PT'S POLST STATING NO ARTIFICIAL NUTRITION INCLUDING TUBES. 2. IF/WHEN MEDICALLY APPROPRIATE AND PT EXTUBATED CONSIDER SWALLOW EVAL TO DETERMINE APPROPRIATE TEXTURE MODIFICATION FOR PO INTAKES 3. SHOULD THERE BE A NEED FOR NUTRITION SUPPORT, PLEASE CONSULT RD PRN FOR NUTRITION SUPPORT RECOMMENDATIONS. RD WILL CONTINUE TO FOLLOW PT CASE. 4. RD WILL F/U 2-3 DAYS; HIGH RISK. SHANIQUE EUCEDA RD
--- NOTE | 2016-07-18 14:51 | NUR ---
CHECKED ON PT. NO SIGNS OF ACUTE DISTRESS AT THIS TIME. CALL LIGHT WITHIN REACH. WILL CONTINUE TO MONITOR.
--- NOTE | 2016-07-18 15:11 | NUR ---
RESTING WELL NO DISTRESS NOTED
[2016-07-18] MEDS ORDERED: ALPR0.5T2 PO (15:38)
--- NOTE | 2016-07-18 16:02 | NUR ---
GAVE HANDOFF REPORT TO YOVANA ARROYO OF [facility]. ALL QUESTIONS ANSWERED.
--- NOTE | 2016-07-18 17:29 | NUR ---
AWAKE STABLE NO SOB NOTED BREATH SOUNDS RHONCHI BILATERAL WITH GOOD CHEST RISE ENDOTRACHEAL SUCTION FOR MODERATE THIN YELLOW SECRETIONS AIRWAY PATENT
--- NOTE | 2016-07-18 17:44 | NUR ---
PT TOLERATED MEDS WELL.
--- NOTE | 2016-07-18 18:14 | NUR ---
DISCHARGE PAPERWORK SIGNED BY PT'S AND PLACED IN CHART.
[2016-07-18 19:19] LABS: INR 1.4 (0.8-1.2); PROTHROMBIN TIME 12.9 secs (10.8-13.4)
--- NOTE | 2016-07-18 19:20 | NUR ---
REPORT GIVEN TO YOVANA RYDER FOR CONTINUITY OF CARE
--- NOTE | 2016-07-18 19:25 | NUR ---
RECEIVED REPORT FROM LAZARO YEN. PATIENT RESTING IN BED. PATIENT OPENS EYES SPONTANEOUSLY, NONVERBAL, BUT CAN FOLLOW COMMANDS. PATIENT IS ABLE TO SHAKE OR NOD HER HEAD WHEN ASKED QUESTIONS. PATIENT IS ETT TO VENT WITH SETTINGS OF FIO2 28%, TIDAL VOLUME 550, A/C 14, PEEP 5. NO S/S OF RESPIRATORY DISTRESS OR SOB NOTED. BREATH SOUNDS ARE COARSE UPON AUSCULTATION AND BOWEL SOUNDS ARE HYPOACTIVE. THERE IS FARIAS CATHETER DRAINING TO GRAVITY WITH MODERATE AMOUNT OF LIGHT JAMILAH COLOR URINE NOTED. THERE IS A TRIPLE LUMEN CATHETER IN THE LEFT FEMORAL. PATIENT IS RECEIVING NORMAL SALINE 50 ML/HR , HEPARIN DRIP AT 12 ML/HR, AND PROPOFOL DRIP AT 5MCG/KG/MIN. VITALS ARE WNL. HOB AT 30 DEGREES WITH BED IN LOW POSITION. WILL CONTINUE TO MONITOR PATIENT.
--- NOTE | 2016-07-18 19:50 | NUR ---
[facility] TEAM ON UNIT.
--- NOTE | 2016-07-18 20:03 | NUR ---
REPORTED PTT 39.0 TO JOHN YEN AT [facility] [phone].
--- NOTE | 2016-07-18 20:30 | NUR ---
PATIENT IN STABLE CONDITION WITH NO SIGNS OF DISTRESS NOTED. PATIENT DISCHARGED OFF UNIT TO [facility].
[2016-07-18] MEDS ORDERED: ATORVASTATIN 20 MG TAB PO SCH (21:00)
== END 2016-07-18 20:30 | disposition short-term general hospital (02) | DRG 871 ==
LOC: MED 14:56 → MIC 18:01
PROVIDERS: ADMIT Family Medicine; ATTEND Family Medicine
PROC: 5A1945Z Respiratory Ventilation, 24-96 Consecutive Hours (ICD-10-PCS; principal; 2016-07-17)
PROC: 0BH17EZ Insertion of Endotracheal Airway into Trachea, Via Natural or Artificial Opening (ICD-10-PCS; 2016-07-17)
PROC: 06HM33Z Insertion of Infusion Device into Right Femoral Vein, Percutaneous Approach (ICD-10-PCS; 2016-07-17)
PROC: B54BZZA Ultrasonography of Right Lower Extremity Veins, Guidance (ICD-10-PCS; 2016-07-17)
PROC: 5A09357 Assistance with Respiratory Ventilation, Less than 24 Consecutive Hours, Continuous Positive Airway Pressure (ICD-10-PCS; 2016-07-17)
DX: A41.9 Sepsis, unspecified organism (principal); R65.21 Severe sepsis with septic shock; J69.0 Pneumonitis due to inhalation of food and vomit; N17.0 Acute kidney failure with tubular necrosis; J96.21 Acute and chronic respiratory failure with hypoxia; J44.1 Chronic obstructive pulmonary disease with (acute) exacerbation; D68.59 Other primary thrombophilia; I82.503 Chronic embolism and thrombosis of unspecified deep veins of lower extremity, bilateral; E44.0 Moderate protein-calorie malnutrition; Z68.41 Body mass index [BMI] 40.0-44.9, adult; E11.65 Type 2 diabetes mellitus with hyperglycemia; E11.51 Type 2 diabetes mellitus with diabetic peripheral angiopathy without gangrene; I10 Essential (primary) hypertension; E78.00 Pure hypercholesterolemia, unspecified; I70.90 Unspecified atherosclerosis; E66.01 Morbid (severe) obesity due to excess calories; L81.9 Disorder of pigmentation, unspecified; E78.5 Hyperlipidemia, unspecified; D64.9 Anemia, unspecified; K21.9 Gastro-esophageal reflux disease without esophagitis; E87.5 Hyperkalemia; Z88.4 Allergy status to anesthetic agent; Z88.8 Allergy status to other drugs, medicaments and biological substances; Z79.82 Long term (current) use of aspirin; Z79.4 Long term (current) use of insulin; Z79.899 Other long term (current) drug therapy; Z71.3 Dietary counseling and surveillance; Z86.711 Personal history of pulmonary embolism; Z87.891 Personal history of nicotine dependence; Z82.49 Family history of ischemic heart disease and other diseases of the circulatory system; Z83.3 Family history of diabetes mellitus
CPT/HCPCS: 31500; 36415; 36556; 36600; 51702; 71010; 80048; 80053; 80305; 81001; 82140; 82150; 82550; 82553; 82803; 83036; 83605; 83690; 83735; 83874; 83880; 84100; 84439; 84443; 84484; 85025; 85610; 85730; 87040; 87070; 87081; 87186; 87205; 89220; 93005; 94003; 94640; 96365; 96367; 96375; 99291; 99292; C9113; J1644; J1815; J1956; J2250; J2543; J2704; J3010; J3475; J3490; J7030; J7060; J7620; J7626; Q0092